=== PATIENT | male | born 1990 ===

== ENCOUNTER 2024-01-30 08:01 | Inpatient (IN) ==
[2024-01-30] MEDS: NS 0.9% 500 ml BAG 500 ML IV ONE (08:20)
[2024-01-30] MEDS ORDERED: Rocuronium 50 mg VIAL 10 mg/ml 5 ml VIAL (50 mg) ONE (08:26)
[2024-01-30] MEDS ORDERED: Norepinephrine 4 MG/250mL D5W 4,000 MCG/250 ML BAG IV ONE (08:26)
[2024-01-30] MEDS ORDERED: Succinylcholine 200 mg VIAL 20 mg/ml 10 ml VIAL (200 mg) ONE (08:27)
[2024-01-30 08:36] LABS: Hematocrit 34.6 % (38-53); Hemoglobin 11.1 g/dL (13.2-16.3); Mean Corpuscular Hemoglobin 27.9 pg (27-33); Mean Corpuscular Hgb Conc 32.1 g/dL (31-36); Mean Corpuscular Volume 86.7 fL (80-97); Mean Platelet Volume 7.3 fL (7.5-11.2); Platelet Count 389 10^3/uL (150-450); Red Blood Count 3.99 10^6/uL (4.06-5.63); Red Cell Distribution Width 14.2 % (12-17); White Blood Count 15.4 10^3/uL (3.6-10.2)
[2024-01-30] MEDS: Octreotide Acetate 50 MCG in NS 0.9% 50 ML 50 ML IV ONE (08:45)
[2024-01-30] MEDS: Ondansetron 4 mg VIAL 2 MG/ML 2 ml VIAL IV ONE (08:54)
[2024-01-30] MEDS: Octreotide Acetate 500 MCG in NS 0.9% 100 ml BAG 100 ML IV SCH (09:06)
[2024-01-30] MEDS ORDERED: LORazepam 2 mg VIAL 1 ml ONE (09:08)
[2024-01-30] MEDS ORDERED: Ondansetron 4 mg VIAL 2 MG/ML 2 ml VIAL ONE (09:09)
[2024-01-30 09:15] LABS: ALT 13 U/L (7-52); AST 13 U/L (13-39); Albumin 3.7 g/dL (3.2-5.2); Albumin/Globulin Ratio 1.9 (1-3); Alcohol, S < 13 mg/dL (<13); Alkaline Phosphatase 37 U/L (35-149); Anion Gap 14 mmol/L (2-16); Blood Urea Nitrogen 53 mg/dL (6-24); CO2 Carbon Dioxide 23 mmol/L (22-32); Calcium 8.8 mg/dL (8.6-10.3); Chloride 101 mmol/L (101-111); Creatinine, Serum 1.05 mg/dL (0.67-1.17); Globulin 1.9 g/dL (2-4); Glucose 156 mg/dL (70-100); Potassium 3.9 mmol/L (3.5-5.0); Sodium 138 mmol/L (135-145); Total Bilirubin 0.5 mg/dL (0.2-1.0); Total Protein 5.6 g/dL (6.4-8.9); eGFR CKD-EPI 95.5 (>60)
[2024-01-30 09:17] LABS: ABS Basophils 0.1 10^3/uL (0.0-0.1); ABS Eosinophils 0.2 10^3/uL (0.0-0.5); ABS Lymphocytes 7.9 10^3/uL (1.0-4.8); ABS Monocytes 1.8 10^3/uL (0.0-1.1); ABS Neutrophils 5.5 10^3/uL (1.5-7.6); Eosinophil % 1.3 %
[2024-01-30] MEDS: Pantoprazole VIAL 40 MG VIAL IV ONE (09:20)
[2024-01-30 09:27] LABS: INR 1.22 (0.83-1.13)
[2024-01-30] MEDS ORDERED: Pantoprazole 80 mg in NS BAG 80 MG/250 ML BAG IV ONE (09:33)
[2024-01-30] MEDS: Pantoprazole 80 mg in NS BAG 80 MG/250 ML BAG IV ONE (09:50)
[2024-01-30] MEDS: Midazolam PREMIXBAG 1 MG/ML NS 100 ML IV SCH (09:50)
[2024-01-30] MEDS: fentaNYL INFUSION 50 mcg/mL VL 2,500 MCG/50 ML VIAL IV SCH (09:54)
[2024-01-30 10:29] LABS: Hematocrit 50.7 % (38-53); Hemoglobin 17.2 g/dL (13.2-16.3)
[2024-01-30 10:36] LABS: INR 1.21 (0.83-1.13)
[2024-01-30] MEDS: Iohexol 350 (CONTRAST) 500 ML MDV IV ONE (10:47)
[2024-01-30] MEDS: Midazolam 5 mg/5 ml VIAL 1 mg/ml 5 ml VIAL (5 mg) IV SLOW PU ONE (11:11)
[2024-01-30] MEDS: Midazolam 5 mg/5 ml VIAL 1 mg/ml 5 ml VIAL (5 mg) ONE (11:16)
[2024-01-30] MEDS: CALCIUM GLUCONATE 1GM/50ML NS 1 GM/50 ML BAG IV ONE (11:16)
[2024-01-30 11:31] LABS: Anion Gap 8 mmol/L (2-16); Blood Urea Nitrogen 44 mg/dL (6-24); CO2 Carbon Dioxide 21 mmol/L (22-32); Calcium 7.1 mg/dL (8.6-10.3); Chloride 110 mmol/L (101-111); Creatinine, Serum 0.68 mg/dL (0.67-1.17); Glucose 117 mg/dL (70-100); Sodium 139 mmol/L (135-145); eGFR CKD-EPI 125.1 (>60)
[2024-01-30 12:02] LABS: Urine Benzodiazepine Screen Presumptive Positive (None Detect); Urine Cannabinoids Screen Presumptive Positive (None Detect); Urine Opiates Screen None Detected (None Detect)
[2024-01-30] MEDS: Erythromycin Lactobionate IV 250 MG in NS 0.9% 100 ml BAG 100 ML IVPB ONE (12:11)
[2024-01-30] MEDS: CALCIUM GLUCONATE 1GM/50ML NS 1 GM/50 ML BAG IV SCH (13:17)
[2024-01-30] MEDS: Chlorhexidine MOUTHWASH 0.12% 15 ML UDC TOPICAL SCH (14:11)
[2024-01-30 14:17] LABS: Hematocrit 53.7 % (38-53); Hemoglobin 18.2 g/dL (13.2-16.3)
[2024-01-30] MEDS ORDERED: Midazolam 10 mg/10 ml VIAL 1 mg/ml 10 ml VIAL (10 mg) ONE (15:15)
[2024-01-30] MEDS ORDERED: fentaNYL 100 mcg/2 ml 50 MCG/ML VIAL ONE (15:15)
[2024-01-30 16:51] LABS: ABS Lymphocytes 2.5 10^3/uL (1.0-4.8); ABS Monocytes 1.1 10^3/uL (0.0-1.1); ABS Neutrophils 8.1 10^3/uL (1.5-7.6); ABS Nucleated RBC 0.03 10^3/ul; Eosinophil % 0.3 %; Hemoglobin 17.1 g/dL (13.2-16.3); Lymphocyte % 21.1 %; Mean Corpuscular Hgb Conc 33.6 g/dL (31-36); Mean Corpuscular Volume 86.5 fL (80-97); Mean Platelet Volume 7.3 fL (7.5-11.2); Nucleated Red Blood Cells % 0.2 %/100WBC (0.0-0.8); Platelet Count 176 10^3/uL (150-450); Red Cell Distribution Width 14.9 % (12-17); White Blood Count 11.7 10^3/uL (3.6-10.2)
[2024-01-30 17:17] LABS: Calcium 7.8 mg/dL (8.6-10.3); Creatinine, Serum 0.73 mg/dL (0.67-1.17); Magnesium 1.6 mg/dL (1.9-2.7); eGFR CKD-EPI 122.4 (>60)
[2024-01-30] MEDS: Metoclopramide 5 MG/ML VIAL (10 mg) IV SCH (17:56)
[2024-01-30] MEDS: Magnesium Sulfate 2 gm BAG 2 GM/50 ML BAG IV ONE (19:44)
[2024-01-30] MEDS: Pantoprazole VIAL 40 MG VIAL IV SCH (19:44)
[2024-01-30] MEDS: Acetaminophen IV 1 GM/100ML 1,000 MG/100 ML BAG IV PRN (21:46)
[2024-01-30] MEDS: Acetaminophen IV 1 GM/100ML 1,000 MG/100 ML BAG IV ONE (22:09)
[2024-01-30 23:12] LABS: Hemoglobin 16.9 g/dL (13.2-16.3); Mean Corpuscular Hemoglobin 29.3 pg (27-33); Mean Corpuscular Hgb Conc 33.9 g/dL (31-36); Mean Corpuscular Volume 86.5 fL (80-97); Mean Platelet Volume 7.2 fL (7.5-11.2); Platelet Count 165 10^3/uL (150-450); Red Blood Count 5.78 10^6/uL (4.06-5.63); Red Cell Distribution Width 15.1 % (12-17); White Blood Count 13.4 10^3/uL (3.6-10.2)
[2024-01-31 01:59] LABS: ABS Basophils 0.1 10^3/uL (0.0-0.1); ABS Eosinophils 0.1 10^3/uL (0.0-0.5); ABS Lymphocytes 2.3 10^3/uL (1.0-4.8); ABS Monocytes 1.6 10^3/uL (0.0-1.1); ABS Neutrophils 9.4 10^3/uL (1.5-7.6); ABS Nucleated RBC 0.04 10^3/ul; Eosinophil % 0.5 %; Lymphocyte % 17.5 %; Nucleated Red Blood Cells % 0.3 %/100WBC (0.0-0.8)
[2024-01-31 04:32] LABS: ABS Basophils 0.1 10^3/uL (0.0-0.1); ABS Eosinophils 0.1 10^3/uL (0.0-0.5); ABS Lymphocytes 2.6 10^3/uL (1.0-4.8); ABS Monocytes 1.2 10^3/uL (0.0-1.1); ABS Neutrophils 9.4 10^3/uL (1.5-7.6); ABS Nucleated RBC 0.03 10^3/ul; Eosinophil % 0.8 %; Hematocrit 48.3 % (38-53); Hemoglobin 16.9 g/dL (13.2-16.3); Lymphocyte % 19.2 %; Mean Corpuscular Hemoglobin 30.1 pg (27-33); Mean Corpuscular Hgb Conc 35.1 g/dL (31-36); Mean Corpuscular Volume 85.8 fL (80-97); Mean Platelet Volume 7.1 fL (7.5-11.2); Nucleated Red Blood Cells % 0.2 %/100WBC (0.0-0.8); Platelet Count 149 10^3/uL (150-450); Red Blood Count 5.62 10^6/uL (4.06-5.63); Red Cell Distribution Width 15.1 % (12-17); White Blood Count 13.3 10^3/uL (3.6-10.2)
[2024-01-31 04:53] LABS: Creatinine, Serum 0.73 mg/dL (0.67-1.17); Magnesium 1.8 mg/dL (1.9-2.7); Potassium 3.8 mmol/L (3.5-5.0); eGFR CKD-EPI 122.4 (>60)
[2024-01-31] MEDS: Dextrose 50% Syringe 50 ml 25 GM/50 ML SYRINGE IV PUSH PRN (05:25)
[2024-01-31] MEDS: Magnesium Sulfate 2 gm BAG 2 GM/50 ML BAG IVPB ONE ×2 (07:14→07:44)
[2024-01-31] MEDS: D5NS 0.9% 1000 ml BAG 1,000 ML IV SCH (07:17)
[2024-01-31] MEDS ORDERED: Dextrose 50% Syringe 50 ml 25 GM/50 ML SYRINGE IV PUSH PRN ×3 (07:17→17:39)
[2024-01-31] MEDS: Dextrose 50% Syringe 50 ml 25 GM/50 ML SYRINGE ONE ×2 (07:21→18:53)
[2024-01-31] MEDS: D10W 500 ml BAG 500 ML IV SCH (09:39)
[2024-01-31] MEDS: Sodium Chloride CONC. 4 MEQ/ML 77 MEQ in D10W 1000 ml BAG 1,000 ML IV SCH (10:11)
[2024-01-31] MEDS: Midazolam 5 mg/5 ml VIAL 1 mg/ml 5 ml VIAL (5 mg) ONE ×3 (11:43→18:32)
[2024-01-31] MEDS: Midazolam 5 mg/5 ml VIAL 1 mg/ml 5 ml VIAL (5 mg) IV SLOW PU ONE ×3 (11:50→17:30)
[2024-01-31] MEDS ORDERED: DEXTROSE IV SCH (13:00)
[2024-01-31] MEDS ORDERED: PHENobarbital IV 65 MG/ML 1 ml VIAL IVPB ONE (13:04)
[2024-01-31] MEDS: D10W IV SCH ×2 (13:34→19:30)
[2024-01-31] MEDS: WATER IV SCH ×2 (13:34→19:30)
[2024-01-31] MEDS: DEXTROSE 70% IV SCH ×2 (13:34→19:30)
[2024-01-31] MEDS: Metoclopramide 5 MG/ML VIAL (10 mg) IV SCH (13:41)
[2024-01-31] MEDS: NS 0.9% IVPB ONE (13:45)
[2024-01-31] MEDS: PHENOBARBITAL IVPB ONE (13:45)
[2024-01-31] MEDS: cefTRIAXone 1 gm/50 mL D5W 1 GM/50 ML BAG IV SCH (13:50)
[2024-01-31] MEDS ORDERED: Midazolam 10 mg/10 ml VIAL 1 mg/ml 10 ml VIAL (10 mg) ONE (14:00)
[2024-01-31] MEDS ORDERED: fentaNYL 100 mcg/2 ml 50 MCG/ML VIAL ONE (14:00)
[2024-01-31 17:49] LABS: ABS Eosinophils 0.1 10^3/uL (0.0-0.5); ABS Lymphocytes 2.2 10^3/uL (1.0-4.8); ABS Monocytes 1.2 10^3/uL (0.0-1.1); ABS Neutrophils 11.9 10^3/uL (1.5-7.6); ABS Nucleated RBC 0.04 10^3/ul; Eosinophil % 0.5 %; Hematocrit 52.7 % (38-53); Hemoglobin 17.6 g/dL (13.2-16.3); Lymphocyte % 14.4 %; Mean Corpuscular Hemoglobin 29.4 pg (27-33); Mean Corpuscular Hgb Conc 33.4 g/dL (31-36); Mean Corpuscular Volume 87.8 fL (80-97); Mean Platelet Volume 7.2 fL (7.5-11.2); Nucleated Red Blood Cells % 0.2 %/100WBC (0.0-0.8); Platelet Count 144 10^3/uL (150-450); Red Cell Distribution Width 15.2 % (12-17); White Blood Count 15.4 10^3/uL (3.6-10.2)
[2024-01-31] MEDS ORDERED: Propofol 10 mg/ml 100 ML BTL 1,000 MG/100 ML BTL IV SCH (18:26)
[2024-01-31 18:40] LABS: ALT 17 U/L (7-52); Albumin 3.3 g/dL (3.2-5.2); Albumin/Globulin Ratio 1.7 (1-3); Alkaline Phosphatase 48 U/L (35-149); Anion Gap 6 mmol/L (2-16); Blood Urea Nitrogen 23 mg/dL (6-24); CO2 Carbon Dioxide 25 mmol/L (22-32); Calcium 7.5 mg/dL (8.6-10.3); Chloride 106 mmol/L (101-111); Creatine Kinase 472 U/L (10-223); Creatinine, Serum 0.73 mg/dL (0.67-1.17); Glucose 73 mg/dL (70-100); Sodium 137 mmol/L (135-145); Total Bilirubin 1.8 mg/dL (0.2-1.0); Total Protein 5.3 g/dL (6.4-8.9); eGFR CKD-EPI 122.4 (>60)
[2024-01-31 18:50] LABS: Prolactin 22.2 ng/mL (1.0-20.0)
[2024-01-31] MEDS: Propofol 10 mg/ml 100 ML BTL 1,000 MG/100 ML BTL IV SCH (19:01)
[2024-01-31] MEDS: CALCIUM GLUCONATE 1GM/50ML NS 1 GM/50 ML BAG IV ONE (19:30)
[2024-01-31 19:38] LABS: Vitamin B12 219 pg/mL (180-914)
[2024-01-31] MEDS: Thiamine 100 MG/ML 2 ml VIAL 100 MG in NS 0.9% 50 ML 50 ML IV SCH (21:26)
[2024-01-31] MEDS: fentaNYL INFUSION 50 mcg/mL VL 2,500 MCG/50 ML VIAL IV SCH (21:34)
[2024-01-31] MEDS: Vancomycin 1,250 MG in NS 0.9% 250 ml 250 ML IVPB ONE (21:35)
[2024-01-31] MEDS: Midazolam PREMIXBAG 1 MG/ML NS 100 ML IV SCH (21:35)
[2024-01-31] MEDS: Vancomycin 1,000 MG in NS 0.9% 250 ml 250 ML IVPB ONE (21:52)
[2024-01-31] MEDS: PROPOFOL IV SCH (21:59)
[2024-01-31] MEDS ORDERED: Vancomycin per Pharmacy 1 EA NOTE FOLLOW UP SCH (22:00)
[2024-01-31] MEDS: Norepinephrine 4 MG/250mL D5W 4,000 MCG/250 ML BAG IV SCH (22:55)
[2024-02-01 01:35] LABS: Venous Bicarbonate HCO3 24.3 mmol/L (24-28)
[2024-02-01] MEDS: cefTRIAXone 1 gm/50 mL D5W 1 GM/50 ML BAG IV SCH (02:01)
[2024-02-01] MEDS: WATER IV SCH (02:13)
[2024-02-01] MEDS: D10W IV SCH (02:13)
[2024-02-01] MEDS: DEXTROSE 70% IV SCH (02:13)
[2024-02-01 05:32] LABS: ABS Eosinophils 0.1 10^3/uL (0.0-0.5); ABS Lymphocytes 1.1 10^3/uL (1.0-4.8); ABS Monocytes 0.7 10^3/uL (0.0-1.1); ABS Neutrophils 9.6 10^3/uL (1.5-7.6); Eosinophil % 1.1 %; Hematocrit 43.5 % (38-53); Hemoglobin 15.4 g/dL (13.2-16.3); Lymphocyte % 9.2 %; Mean Corpuscular Hemoglobin 30.4 pg (27-33); Mean Corpuscular Hgb Conc 35.3 g/dL (31-36); Mean Corpuscular Volume 86.2 fL (80-97); Mean Platelet Volume 7.1 fL (7.5-11.2); Platelet Count 130 10^3/uL (150-450); Red Blood Count 5.04 10^6/uL (4.06-5.63); Red Cell Distribution Width 14.8 % (12-17); White Blood Count 11.5 10^3/uL (3.6-10.2)
[2024-02-01 06:01] LABS: Phosphorus 2.2 mg/dL (2.5-5.0)
[2024-02-01 06:02] LABS: Calcium 7.3 mg/dL (8.6-10.3); Creatinine, Serum 0.76 mg/dL (0.67-1.17); Magnesium 1.7 mg/dL (1.9-2.7)
[2024-02-01 06:29] LABS: Insulin 20.3 mcIU/mL (2.0-16.0)
[2024-02-01] MEDS: Magnesium Sulfate 2 gm BAG 2 GM/50 ML BAG IVPB ONE (07:37)
[2024-02-01] MEDS: KCL 20 MEQ/100 ML IVPREMIX 20 MEQ/100 ML BAG IV SCH (07:37)
[2024-02-01] MEDS: Potassium Phosphate IV 15 MMOL in NS 0.9% 250 ml 250 ML IVPB ONE (07:47)
[2024-02-01] MEDS: Vancomycin 1,250 MG in NS 0.9% 250 ml 250 ML IVPB SCH (07:50)
[2024-02-01] MEDS: Furosemide 40 mg/4 ml IV VIAL IV ONE (11:23)
[2024-02-01] MEDS: Metoprolol Tartrate 5 mg VIAL 5 ml VIAL (1 mg/ml) ONE (11:39)
[2024-02-01] MEDS: Metoprolol Tartrate 5 mg VIAL 5 ml VIAL (1 mg/ml) IV ONE (11:39)
[2024-02-01 11:57] LABS: TSH Ultra Thyroid Stim Horm 0.99 mcIU/mL (0.34-5.60)
[2024-02-01 12:15] LABS: Resp Rate 20
[2024-02-01 12:19] LABS: PCO2 Arterial 43 mmHg (35-45)
[2024-02-01 12:20] LABS: PO2 Arterial 58 mmHg (80-100)
[2024-02-01] MEDS: Midazolam 5 mg/5 ml VIAL 1 mg/ml 5 ml VIAL (5 mg) IV SLOW PU ONE (16:09)
[2024-02-01 16:10] LABS: ABS Eosinophils 0.1 10^3/uL (0.0-0.5); ABS Lymphocytes 1.3 10^3/uL (1.0-4.8); ABS Monocytes 0.7 10^3/uL (0.0-1.1); ABS Neutrophils 10.4 10^3/uL (1.5-7.6); ABS Nucleated RBC 0.03 10^3/ul; Eosinophil % 0.7 %; Hematocrit 49.8 % (38-53); Hemoglobin 16.8 g/dL (13.2-16.3); Lymphocyte % 10.2 %; Mean Corpuscular Hemoglobin 29.2 pg (27-33); Mean Corpuscular Hgb Conc 33.7 g/dL (31-36); Mean Corpuscular Volume 86.8 fL (80-97); Mean Platelet Volume 7.4 fL (7.5-11.2); Nucleated Red Blood Cells % 0.2 %/100WBC (0.0-0.8); Platelet Count 138 10^3/uL (150-450); Red Blood Count 5.74 10^6/uL (4.06-5.63); Red Cell Distribution Width 15.2 % (12-17); White Blood Count 12.4 10^3/uL (3.6-10.2)
[2024-02-01 16:18] LABS: Urine Appearance Clear; Urine Bilirubin 1+ (Negative); Urine Blood Negative (Negative); Urine Color Dark-Yellow; Urine Glucose Negative (Negative); Urine Ketones Negative (Negative); Urine Nitrite Negative (Negative); Urine Protein Negative (Negative); Urine Specific Gravity 1.014 (1.002-1.030); Urine Urobilinogen Negative (Negative); Urine pH 5.5 (5.0-8.0)
[2024-02-01] MEDS: CALCIUM GLUCONATE 1GM/50ML NS 1 GM/50 ML BAG IV ONE (16:22)
[2024-02-01 16:44] LABS: Albumin 2.9 g/dL (3.2-5.2); Albumin/Globulin Ratio 1.6 (1-3); Calcium 7.5 mg/dL (8.6-10.3); Creatinine, Serum 0.89 mg/dL (0.67-1.17); Globulin 1.8 g/dL (2-4); Magnesium 1.9 mg/dL (1.9-2.7); Potassium 3.7 mmol/L (3.5-5.0); Total Bilirubin 4.1 mg/dL (0.2-1.0); Total Protein 4.7 g/dL (6.4-8.9); eGFR CKD-EPI 115.3 (>60)
[2024-02-01 16:54] LABS: INR 1.17 (0.83-1.13)
[2024-02-01 17:00] LABS: Platelet Count 137 10^3/ul (150-450); Schistocytes ABSENT
[2024-02-01 17:15] LABS: Direct Bilirubin 2.6 mg/dL (0.03-0.18); Indirect Bilirubin 1.5 mg/dL (0.3-1.0)
[2024-02-01] MEDS: Iohexol 300 (CONTRAST) 10 ML SDV IV ONE (17:15)
[2024-02-01] MEDS: NS 0.9% IVPB ONE (17:27)
[2024-02-01] MEDS: PHENOBARBITAL IVPB ONE (17:27)
[2024-02-01 17:54] LABS: Acetaminophen < 15 mcg/mL; Salicylate < 2.50 mg/dL (<30)
[2024-02-01] MEDS: Rocuronium 50 mg VIAL 10 mg/ml 5 ml VIAL (50 mg) IV ONE (19:43)
[2024-02-01] MEDS: Rocuronium 50 mg VIAL 10 mg/ml 5 ml VIAL (50 mg) ONE (19:45)
[2024-02-01] MEDS: PHENobarbital IV 65 MG/ML 1 ml VIAL IV ONE (19:50)
[2024-02-01] MEDS: metroNIDAZOLE IV 500 MG/100ML 500 MG/100 ML BAG IVPB SCH (19:57)
[2024-02-01 20:43] LABS: Hepatitis B Surface Antigen Nonreactive (Nonreactive)
[2024-02-01 20:48] LABS: Hepatitis A Ab IgM Negative (Negative)
[2024-02-01 20:49] LABS: Hepatitis B Core IgM Nonreactive (Nonreactive)
[2024-02-01 20:52] LABS: HIV 4th Generation Nonreactive (Nonreactive)
[2024-02-01 21:01] LABS: Hepatitis C Antibody Negative (Negative)
[2024-02-01 21:01] LABS: Body Fluid Source Cerebral Spinal
[2024-02-01 21:29] LABS: CSF Glucose 96 mg/dL (40-70)
[2024-02-01] MEDS: Cisatracurium 100 MG in NS 0.9% 250 ml 200 ML IV SCH (21:44)
[2024-02-01 21:48] LABS: CSF Body Fluid WBC 5 /mcL
[2024-02-01 22:27] LABS: Body Fluid Band 11 %; Body Fluid Mono 4 %; Body Fluid Other Cells 1; Body Fluid Total Cells Counted 27
[2024-02-01 22:29] LABS: Body Fluid Appearance Clear; Body Fluid Color Colorless; CSF Tube # 4
[2024-02-01] MEDS: Midazolam PREMIXBAG 1 MG/ML NS 100 ML IV SCH (23:15)
[2024-02-02] MEDS: Propofol 10 mg/ml 100 ML BTL 1,000 MG/100 ML BTL IV SCH (00:05)
[2024-02-02] MEDS: KCL 20 MEQ/100 ML IVPREMIX 20 MEQ/100 ML BAG IV ONE (00:14)
[2024-02-02] MEDS: Dextran 70/Hypromellose Tears Eye Drops 15 ml BTL (for Artificials Tears) BOTH EYES PRN (01:26)
[2024-02-02 04:15] LABS: Hematocrit 45.3 % (38-53); Hemoglobin 15.6 g/dL (13.2-16.3); Mean Corpuscular Hemoglobin 29.7 pg (27-33); Mean Corpuscular Hgb Conc 34.4 g/dL (31-36); Mean Corpuscular Volume 86.4 fL (80-97); Mean Platelet Volume 7.6 fL (7.5-11.2); Platelet Count 158 10^3/uL (150-450); Red Blood Count 5.25 10^6/uL (4.06-5.63); White Blood Count 16.1 10^3/uL (3.6-10.2)
[2024-02-02 04:35] LABS: Calcium 7.7 mg/dL (8.6-10.3); Creatinine, Serum 0.86 mg/dL (0.67-1.17); Magnesium 1.7 mg/dL (1.9-2.7); Potassium 3.4 mmol/L (3.5-5.0); Vancomycin Trough 17.7 mcg/mL; eGFR CKD-EPI 116.5 (>60)
[2024-02-02] MEDS: Magnesium Sulf 4 GM/100 ML IV 4,000 MG/100 ML BAG IVPB ONE (05:09)
[2024-02-02 05:19] LABS: Phosphorus 2.8 mg/dL (2.5-5.0)
[2024-02-02 05:51] LABS: ABS Lymphocytes 1.2 10^3/uL (1.0-4.8); ABS Monocytes 1.6 10^3/uL (0.0-1.1); ABS Neutrophils 13.2 10^3/uL (1.5-7.6); ABS Nucleated RBC 0.01 10^3/ul; Eosinophil % 0.2 %; Lymphocyte % 7.4 %; Nucleated Red Blood Cells % 0.1 %/100WBC (0.0-0.8)
[2024-02-02] MEDS: Vancomycin Trough Check NOTE FOLLOW UP ONE (06:07)
[2024-02-02] MEDS: KCL 20 MEQ/100 ML IVPREMIX 20 MEQ/100 ML BAG IV SCH (06:18)
[2024-02-02] MEDS: Furosemide 40 mg/4 ml IV VIAL IV SLOW PU ONE (13:07)
[2024-02-02 14:00] LABS: ACTH <5.0 pg/mL
[2024-02-02] MEDS: Midazolam 2 mg/2 ml VIAL 1 mg/ml 2 ml VIAL (2 mg) IV SLOW PU PRN (16:23)
[2024-02-02] MEDS: Gadobenate (CONTRAST) 529 MG/ML 10 ML SDV IV ONE (18:49)
[2024-02-02] MEDS: Hydrocortisone INJ 100 MG/2ML 2 ML VIAL IV SCH (18:59)
[2024-02-03] MEDS: NORMOSOL-R pH 7.4 1000 mL BAG 1,000 ML IV SCH (00:04)
[2024-02-03 04:19] LABS: Resp Rate 20
[2024-02-03 04:21] LABS: PCO2 Arterial 41 mmHg (35-45); PO2 Arterial 137 mmHg (80-100)
[2024-02-03 04:26] LABS: ABS Lymphocytes 0.5 10^3/uL (1.0-4.8); ABS Monocytes 0.6 10^3/uL (0.0-1.1); ABS Neutrophils 9.6 10^3/uL (1.5-7.6); Hematocrit 39.6 % (38-53); Hemoglobin 13.6 g/dL (13.2-16.3); Mean Corpuscular Hemoglobin 29.9 pg (27-33); Mean Corpuscular Hgb Conc 34.4 g/dL (31-36); Mean Corpuscular Volume 86.9 fL (80-97); Mean Platelet Volume 7.8 fL (7.5-11.2); Platelet Count 174 10^3/uL (150-450); Red Blood Count 4.56 10^6/uL (4.06-5.63); White Blood Count 10.8 10^3/uL (3.6-10.2)
[2024-02-03 05:21] LABS: Albumin 2.4 g/dL (3.2-5.2); Albumin/Globulin Ratio 1.3 (1-3); Calcium 7.5 mg/dL (8.6-10.3); Creatinine, Serum 0.83 mg/dL (0.67-1.17); Direct Bilirubin 0.3 mg/dL (0.03-0.18); Globulin 1.8 g/dL (2-4); Indirect Bilirubin 0.7 mg/dL (0.3-1.0); Magnesium 2.3 mg/dL (1.9-2.7); Phosphorus 3.2 mg/dL (2.5-5.0); Total Protein 4.2 g/dL (6.4-8.9); eGFR CKD-EPI 117.8 (>60)
[2024-02-03] MEDS: CALCIUM GLUCONATE 1GM/50ML NS 1 GM/50 ML BAG IV SCH (09:36)
[2024-02-03] MEDS: Heparin 5000 UNITS/ML 1 mL VIAL SUBCUT SCH (21:23)
[2024-02-04 06:10] LABS: ABS Monocytes 0.6 10^3/uL (0.0-1.1); ABS Neutrophils 7.8 10^3/uL (1.5-7.6); ABS Nucleated RBC 0.01 10^3/ul; Eosinophil % 0.1 %; Hematocrit 38.8 % (38-53); Hemoglobin 13.2 g/dL (13.2-16.3); Lymphocyte % 10.7 %; Mean Corpuscular Hemoglobin 29.4 pg (27-33); Mean Corpuscular Hgb Conc 33.9 g/dL (31-36); Mean Corpuscular Volume 86.7 fL (80-97); Mean Platelet Volume 8.2 fL (7.5-11.2); Nucleated Red Blood Cells % 0.1 %/100WBC (0.0-0.8); Platelet Count 193 10^3/uL (150-450); Red Blood Count 4.48 10^6/uL (4.06-5.63); Red Cell Distribution Width 15.2 % (12-17); White Blood Count 9.5 10^3/uL (3.6-10.2)
[2024-02-04 06:51] LABS: Albumin 2.3 g/dL (3.2-5.2); Albumin/Globulin Ratio 1.4 (1-3); Calcium 7.5 mg/dL (8.6-10.3); Creatinine, Serum 0.65 mg/dL (0.67-1.17); Direct Bilirubin 0.2 mg/dL (0.03-0.18); Globulin 1.7 g/dL (2-4); Indirect Bilirubin 0.5 mg/dL (0.3-1.0); Magnesium 2.1 mg/dL (1.9-2.7); Phosphorus 2.8 mg/dL (2.5-5.0); Potassium 3.7 mmol/L (3.5-5.0); Total Bilirubin 0.7 mg/dL (0.2-1.0); Vancomycin Trough 11.2 mcg/mL; eGFR CKD-EPI 126.8 (>60)
[2024-02-04] MEDS: Vancomycin Trough Check NOTE FOLLOW UP ONE (07:51)
[2024-02-04] MEDS: KCL 20 MEQ/100 ML IVPREMIX 20 MEQ/100 ML BAG IV ONE (08:13)
[2024-02-04] MEDS ORDERED: Senna TAB 8.6 mg TAB PO PRN (08:52)
[2024-02-04] MEDS: Magnesium Hydroxide LIQ 30 ML UDC PO SCH (09:22)
[2024-02-04] MEDS ORDERED: NS 0.9% IVPB SCH (10:30)
[2024-02-04] MEDS ORDERED: ERYTHROMYCIN LACTOBIONATE IVPB SCH (10:30)
[2024-02-04] MEDS: hydrALAZINE 20 mg/ml 1 ML Vial IV IV SLOW PU PRN (10:45)
[2024-02-04] MEDS: Polyethylene Glycol 3350 17 GM PACKET PO PRN (10:45)
[2024-02-04] MEDS: guaiFENesin 100 mg/5 ml LIQ unit dose cup PO SCH (10:45)
[2024-02-04] MEDS: Albuterol/Ipratropium NEB.SOL (2.5/0.5 MG) 3 ML NEB.SOLN INH SCH (10:56)
[2024-02-04] MEDS: Sodium Chloride(INHALANT)0.9% 5 ML NEB.SOLN INH SCH (10:58)
[2024-02-04] MEDS: Thiamine 100 MG/ML 2 ml VIAL 500 MG in NS 0.9% 250 ml 250 ML IV ONE (11:11)
[2024-02-04] MEDS: Sulfur Hexaflouride MICROSPHR 25 MG VIAL IV ONE (12:16)
[2024-02-04] MEDS: CALCIUM GLUCONATE 1GM/50ML NS 1 GM/50 ML BAG IV ONE (12:20)
[2024-02-04 12:35] LABS: High Sensitivity Troponin 1 Hr 14 pg/mL (<20)
[2024-02-04 14:30] LABS: High Sensitivity Troponin 3 Hr 57 pg/mL (<20)
[2024-02-04] MEDS: Hydrocortisone INJ 100 MG/2ML 2 ML VIAL IV SCH (17:10)
[2024-02-04] MEDS: cloNIDine 0.2 MG PATCH 0.2 MG/24 HR 7 DAY PATCH TRANSDERM SCH (17:12)
[2024-02-05 04:02] LABS: ABS Basophils 0.1 10^3/uL (0.0-0.1); ABS Lymphocytes 1.4 10^3/uL (1.0-4.8); ABS Monocytes 1.3 10^3/uL (0.0-1.1); ABS Neutrophils 7.6 10^3/uL (1.5-7.6); Eosinophil % 0.2 %; Hemoglobin 13.9 g/dL (13.2-16.3); Lymphocyte % 13.9 %; Mean Corpuscular Hgb Conc 34.6 g/dL (31-36); Mean Corpuscular Volume 86.5 fL (80-97); Mean Platelet Volume 7.5 fL (7.5-11.2); Platelet Count 249 10^3/uL (150-450); Red Blood Count 4.63 10^6/uL (4.06-5.63); Red Cell Distribution Width 15.2 % (12-17); White Blood Count 10.4 10^3/uL (3.6-10.2)
[2024-02-05 04:31] LABS: Albumin 2.4 g/dL (3.2-5.2); Albumin/Globulin Ratio 1.2 (1-3); Calcium 7.1 mg/dL (8.6-10.3); Creatinine, Serum 0.65 mg/dL (0.67-1.17); Magnesium 2.2 mg/dL (1.9-2.7); Phosphorus 2.6 mg/dL (2.5-5.0); Potassium 3.4 mmol/L (3.5-5.0); Total Bilirubin 0.5 mg/dL (0.2-1.0); Total Protein 4.4 g/dL (6.4-8.9); eGFR CKD-EPI 126.8 (>60)
[2024-02-05] MEDS: CALCIUM GLUCONATE 1GM/50ML NS 1 GM/50 ML BAG IV ONE (07:43)
[2024-02-05] MEDS: KCL 20 MEQ/100 ML IVPREMIX 20 MEQ/100 ML BAG IV SCH (07:43)
[2024-02-05] MEDS: Thiamine 100 MG/ML 2 ml VIAL 500 MG in NS 0.9% 250 ml 250 ML IV ONE (08:54)
[2024-02-05] MEDS: cefTRIAXone 1 gm/50 mL D5W 1 GM/50 ML BAG IV SCH (09:31)
[2024-02-05] MEDS: Nicotine PATCH 14 MG/24 HR PATCH TRANSDERM SCH (11:14)
[2024-02-05] MEDS: Polymyx/Trimethoprim OPTH.SOL 1 BTL RIGHT EYE SCH (16:48)
[2024-02-06 00:26] LABS: Hematocrit 40.1 % (38-53); Hemoglobin 13.5 g/dL (13.2-16.3); Mean Corpuscular Hemoglobin 29.3 pg (27-33); Mean Corpuscular Hgb Conc 33.8 g/dL (31-36); Mean Corpuscular Volume 86.8 fL (80-97); Mean Platelet Volume 7.2 fL (7.5-11.2); Platelet Count 274 10^3/uL (150-450); Red Blood Count 4.62 10^6/uL (4.06-5.63); Red Cell Distribution Width 15.1 % (12-17); White Blood Count 9.5 10^3/uL (3.6-10.2)
[2024-02-06 04:03] LABS: ABS Eosinophils 0.1 10^3/uL (0.0-0.5); ABS Lymphocytes 1.6 10^3/uL (1.0-4.8); ABS Monocytes 1.1 10^3/uL (0.0-1.1); ABS Neutrophils 6.1 10^3/uL (1.5-7.6); Eosinophil % 1.4 %; Hematocrit 37.4 % (38-53); Hemoglobin 12.8 g/dL (13.2-16.3); Lymphocyte % 17.9 %; Mean Corpuscular Hemoglobin 29.9 pg (27-33); Mean Corpuscular Hgb Conc 34.2 g/dL (31-36); Mean Corpuscular Volume 87.2 fL (80-97); Mean Platelet Volume 7.3 fL (7.5-11.2); Platelet Count 273 10^3/uL (150-450); Red Blood Count 4.28 10^6/uL (4.06-5.63); Red Cell Distribution Width 15.4 % (12-17)
[2024-02-06 04:56] LABS: Albumin 2.4 g/dL (3.2-5.2); Albumin/Globulin Ratio 1.3 (1-3); Calcium 7.3 mg/dL (8.6-10.3); Creatinine, Serum 0.55 mg/dL (0.67-1.17); Globulin 1.8 g/dL (2-4); Magnesium 2.3 mg/dL (1.9-2.7); Phosphorus 2.8 mg/dL (2.5-5.0); Potassium 3.6 mmol/L (3.5-5.0); Total Bilirubin 0.4 mg/dL (0.2-1.0); Total Protein 4.2 g/dL (6.4-8.9); eGFR CKD-EPI 133.4 (>60)
[2024-02-06 05:47] LABS: ABS Eosinophils 0.1 10^3/uL (0.0-0.5); ABS Lymphocytes 1.5 10^3/uL (1.0-4.8); ABS Monocytes 1.1 10^3/uL (0.0-1.1); ABS Neutrophils 6.7 10^3/uL (1.5-7.6); Eosinophil % 0.7 %; Lymphocyte % 15.7 %
[2024-02-06] MEDS ORDERED: KCL 20 MEQ/100 ML IVPREMIX 20 MEQ/100 ML BAG IV SCH (08:00)
[2024-02-06] MEDS: CALCIUM GLUCONATE 1GM/50ML NS 1 GM/50 ML BAG IV ONE (08:04)
[2024-02-06] MEDS: KCL 20 MEQ/100 ML IVPREMIX 20 MEQ/100 ML BAG IV SCH (08:04)
[2024-02-06] MEDS: Thiamine 100 MG/ML 2 ml VIAL 500 MG in NS 0.9% 250 ml 250 ML IV ONE (11:53)
[2024-02-06 17:10] LABS: HSV 1 PCR, CSF Negative (Negative); HSV 2 PCR, CSF Negative (Negative)
[2024-02-06] MEDS ORDERED: cefTRIAXone 1 gm/50 mL D5W 1 GM/50 ML BAG IV SCH (21:00)
[2024-02-06] MEDS: fentaNYL 100 mcg/2 ml 50 MCG/ML VIAL IV SLOW PU PRN (21:19)
[2024-02-07 04:47] LABS: ABS Eosinophils 0.3 10^3/uL (0.0-0.5); ABS Lymphocytes 1.5 10^3/uL (1.0-4.8); ABS Monocytes 1.1 10^3/uL (0.0-1.1); ABS Neutrophils 6.6 10^3/uL (1.5-7.6); ABS Nucleated RBC 0.01 10^3/ul; Eosinophil % 2.9 %; Hematocrit 38.8 % (38-53); Hemoglobin 13.1 g/dL (13.2-16.3); Lymphocyte % 15.7 %; Mean Corpuscular Hemoglobin 29.5 pg (27-33); Mean Corpuscular Hgb Conc 33.6 g/dL (31-36); Mean Corpuscular Volume 87.8 fL (80-97); Nucleated Red Blood Cells % 0.1 %/100WBC (0.0-0.8); Platelet Count 312 10^3/uL (150-450); Red Blood Count 4.42 10^6/uL (4.06-5.63); Red Cell Distribution Width 15.3 % (12-17); White Blood Count 9.5 10^3/uL (3.6-10.2)
[2024-02-07 05:23] LABS: Calcium 7.8 mg/dL (8.6-10.3); Creatinine, Serum 0.65 mg/dL (0.67-1.17); Potassium 3.8 mmol/L (3.5-5.0); eGFR CKD-EPI 126.8 (>60)
[2024-02-07] MEDS: cefTRIAXone 1 gm/50 mL D5W 1 GM/50 ML BAG IV SCH (08:54)
[2024-02-07] MEDS: Ondansetron 4 mg VIAL 2 MG/ML 2 ml VIAL IV PRN (08:54)
[2024-02-07] MEDS: KCL 20 MEQ/100 ML IVPREMIX 20 MEQ/100 ML BAG IV ONE (08:54)
[2024-02-07] MEDS: Magnesium Hydroxide LIQ 30 ML UDC PO PRN (08:55)
[2024-02-07] MEDS ORDERED: Lorazepam PYXIS KEY PRN (17:22)
[2024-02-07] MEDS: LORazepam 2 mg VIAL 1 ml IV PUSH PRN (20:05)
[2024-02-08 04:12] LABS: ABS Eosinophils 0.4 10^3/uL (0.0-0.5); ABS Lymphocytes 1.7 10^3/uL (1.0-4.8); ABS Neutrophils 6.2 10^3/uL (1.5-7.6); Eosinophil % 4.2 %; Hematocrit 40.3 % (38-53); Hemoglobin 13.4 g/dL (13.2-16.3); Lymphocyte % 18.1 %; Mean Corpuscular Hemoglobin 29.1 pg (27-33); Mean Corpuscular Hgb Conc 33.2 g/dL (31-36); Mean Corpuscular Volume 87.5 fL (80-97); Mean Platelet Volume 7.3 fL (7.5-11.2); Platelet Count 373 10^3/uL (150-450); White Blood Count 9.4 10^3/uL (3.6-10.2)
[2024-02-08 04:52] LABS: Creatinine, Serum 0.63 mg/dL (0.67-1.17); Magnesium 2.1 mg/dL (1.9-2.7)
[2024-02-08] MEDS ORDERED: Albuterol/Ipratropium NEB.SOL (2.5/0.5 MG) 3 ML NEB.SOLN INH PRN (08:38)
[2024-02-08] MEDS: LORazepam 2 mg VIAL 1 ml IV PUSH SCH (12:11)
[2024-02-08] MEDS ORDERED: Metoprolol Tartrate 5 mg VIAL 5 ml VIAL (1 mg/ml) IV PRN (13:38)
[2024-02-09 04:44] LABS: Hematocrit 42.5 % (38-53); Hemoglobin 14.4 g/dL (13.2-16.3); Mean Corpuscular Hemoglobin 29.2 pg (27-33); Mean Corpuscular Hgb Conc 33.9 g/dL (31-36); Mean Corpuscular Volume 86.1 fL (80-97); Platelet Count 392 10^3/uL (150-450); Red Blood Count 4.93 10^6/uL (4.06-5.63); Red Cell Distribution Width 14.7 % (12-17); White Blood Count 8.9 10^3/uL (3.6-10.2)
[2024-02-09 05:15] LABS: Creatinine, Serum 0.71 mg/dL (0.67-1.17); Potassium 3.8 mmol/L (3.5-5.0); eGFR CKD-EPI 123.5 (>60)
[2024-02-09 07:41] LABS: ABS Basophils 0.1 10^3/uL (0.0-0.1); ABS Eosinophils 0.3 10^3/uL (0.0-0.5); ABS Lymphocytes 1.6 10^3/uL (1.0-4.8); ABS Monocytes 1.2 10^3/uL (0.0-1.1); ABS Neutrophils 5.7 10^3/uL (1.5-7.6); Eosinophil % 3.2 %; Lymphocyte % 18.4 %
[2024-02-09] MEDS: Enoxaparin 40 MG/0.4 ML SYR SUBCUT SCH (20:16)
[2024-02-10 08:34] LABS: ABS Basophils 0.1 10^3/uL (0.0-0.1); ABS Eosinophils 0.2 10^3/uL (0.0-0.5); ABS Lymphocytes 2.3 10^3/uL (1.0-4.8); ABS Monocytes 1.4 10^3/uL (0.0-1.1); ABS Nucleated RBC 0.01 10^3/ul; Eosinophil % 2.1 %; Hematocrit 44.9 % (38-53); Hemoglobin 15.4 g/dL (13.2-16.3); Mean Corpuscular Hemoglobin 29.7 pg (27-33); Mean Corpuscular Hgb Conc 34.3 g/dL (31-36); Mean Corpuscular Volume 86.8 fL (80-97); Mean Platelet Volume 6.7 fL (7.5-11.2); Nucleated Red Blood Cells % 0.1 %/100WBC (0.0-0.8); Platelet Count 424 10^3/uL (150-450); Red Blood Count 5.18 10^6/uL (4.06-5.63); Red Cell Distribution Width 14.7 % (12-17); White Blood Count 11.9 10^3/uL (3.6-10.2)
[2024-02-10 08:55] VITALS: BP 123/87
[2024-02-10 09:23] LABS: Calcium 8.7 mg/dL (8.6-10.3); Creatinine, Serum 0.67 mg/dL (0.67-1.17); Potassium 4.4 mmol/L (3.5-5.0); eGFR CKD-EPI 125.6 (>60)
[2024-02-10] MEDS ORDERED: Nicotine Lozenge mini 2 MG LOZNG.MINI MT PRN (10:09)
== END 2024-02-10 13:37 | disposition left against medical advice (07) | DRG 243 ==
LOC: ED 08:01 → EDHOLD 09:37 → SUATTDRO 09:37 → ICU 09:54 → MEDTELE 02-09 18:25
PROVIDERS: ADMIT Student in an Organized Health Care Education/Training Program; ATTEND Internal Medicine